=== PATIENT | female | born 1985 | race African-American/Black ===

== ENCOUNTER 2022-05-23 16:31 | Emergency (ER) | payer OTHER ==
[~2022-05-23] VITALS: Ht 157.5 cm; Wt 81.2 kg
--- NOTE | 2022-05-23 16:36 | NUR ---
name called, no answer at this time
[2022-05-23 16:41] VITALS: BP 112/76
[2022-05-23] MEDS ORDERED: MORPHINE SULFATE 2 MG/ML SYR IM STA (17:29)
[2022-05-23] MEDS ORDERED: KETOROLAC 30 MG/ML VIAL IM ONE (17:30)
[2022-05-23 17:54] LABS: BASOPHILS # (AUTO) 0.1 K/uL (0.00-0.22); BASOPHILS % (AUTO) 0.8 % (0.0-2.0); EOSINOPHILS # (AUTO) 0.3 K/uL (0-0.4); HEMOGLOBIN 13.4 g/dL (12.0-16.0); LYMPHOCYTES # (AUTO) 2.2 K/uL (2.5-16.5); LYMPHOCYTES % (AUTO) 15.1 % (20.5-51.1); MEAN CORPUSCULAR HEMOGLOBIN 30 pg (27-31); MEAN CORPUSCULAR HGB CONC 34 g/dL (33-37); MEAN CORPUSCULAR VOLUME 90.8 fL (80-94); MONOCYTES # (AUTO) 0.6 K/uL (0.8-1.0); MONOCYTES % (AUTO) 4.3 % (1.7-9.3); NEUTROPHILS # (AUTO) 11.5 K/uL (1.8-7.7); NEUTROPHILS % (AUTO) 77.8 % (42.2-75.2); PLATELET COUNT (AUTO) 348 K/uL (140-450); RED CELL DISTRIBUTION WIDTH 13.3 % (11.6-13.7); WHITE BLOOD COUNT (AUTO) 14.8 K/uL (4.8-10.8)
--- NOTE | 2022-05-23 18:00 | NUR ---
36 Y/O FEMALE BIB SELF C/O LOW BACK PAIN, ABD PAIN XTHIS MORNING AT 1000H. PER PT C/O NAUSEA AND FAITGUE. TOOK ZOFRAN ODT FOR NAUSEA WITH MINIMAL EFFECT. pmh: adrenal insufficiency, endometriosis, gastroparesis allergy: penicillin med: hydrocortisone, zofran, xanax
--- NOTE | 2022-05-23 18:00 | NUR ---
PT AMBULATED TO ER BED 4
[2022-05-23 18:14] LABS: ALBUMIN 3.6 g/dL (3.4-5.0); ANION GAP 13.6 (8-16); CARBON DIOXIDE 25.7 mmol/L (21-32); CREATININE 0.8 mg/dL (0.6-1.3); POTASSIUM 4.3 mmol/L (3.5-5.1); TOTAL BILIRUBIN 0.3 mg/dL (0.0-1.0)
--- NOTE | 2022-05-23 19:30 | NUR ---
Pt report given to REMA NUÑEZ. Transfer of care at this time.
[2022-05-23 19:57] VITALS: BP 130/81
[2022-05-23] MEDS ORDERED: CYCLOBENZAPRINE 10 MG TAB PO ONE (21:10)
[2022-05-23] MEDS ORDERED: ONDANSETRON 4 MG ODT PO ONE (22:00)
[2022-05-23] MEDS ORDERED: IBUP-1842 PO (22:16)
[2022-05-23] MEDS ORDERED: CYCL-711 PO (22:16)
[2022-05-23] MEDS ORDERED: DICL100G5 TP (22:16)
[2022-05-23] MEDS ORDERED: ACET-8386 PO (22:16)
--- NOTE | 2022-05-23 22:23 | NUR ---
Patient discharged with v/s stable. Written and verbal after care instructions given and explained. Patient alert, oriented and verbalized understanding of instructions. Ambulatory with steady gait. All questions addressed prior to discharge. ID band removed. Patient advised to follow up with PMD. Rx of flexeril, diclofenac, motrin given. Patient educated on indication of medication including possible reaction and side effects. Opportunity to ask questions provided and answered.
== END 2022-05-23 22:23 | disposition home or self-care (01) ==
LOC: MED 16:31
DX: M54.31 Sciatica, right side (principal)
CPT/HCPCS: 36415; 74176; 80053; 81002; 81025; 85025; 96372; 99284; J1885; J2270; Q0162